=== PATIENT | male | born 1935 | race Caucasian/White ===

== ENCOUNTER 2019-04-27 14:41 | Emergency (ER) | payer OTHER ==
--- NOTE | 2019-04-27 15:14 | EDPHYS ---
Physician Documentation [facility] Name: Fantasma Mcdonald Age: 83 yrs Sex: Male : 1935 Arrival Date: 04/27/2019 Time: 14:45 Bed 7 Private MD: Eugenio Robledo C ED Physician Edgard Saleh HPI: 04/27 15:11 This 83 yrs old Male presents to ER via Ambulatory with complaints of Wound jmm Infection. 15:11 The patient presents with cellulitis of the right arm. Onset: The symptoms/episode jmm began/occurred gradually, 1 week(s) ago. Possible cause(s): injury. Associated signs and symptoms: Pertinent positives: swelling, Pertinent negatives: fever. This is an 83 year old with a history of htn that presents to the ED with complaints of redness and swelling to his right arm. Patient states his arm was scraped approx 1 week ago. Patient has applied abx ointment and noticed swelling with redness yesterday. Denies fever or chills. . Historical: - Allergies: 15:00 NKDA; aj1 - Home Meds: 15:00 losartan oral oral [Active]; Metoprolol Tartrate Oral [Active]; aj1 - PMHx: 15:00 Hypertension; aj1 - Immunization history:: Flu vaccine is not up to date. - Social history:: Smoking status: Patient/guardian denies using tobacco. - Ebola Screening: : Patient denies travel to an Ebola-affected area in the 21 days before illness onset. ROS: 15:11 Constitutional: Negative for fever, chills, and weight loss, Cardiovascular: Negative jmm for chest pain, palpitations, and edema, Respiratory: Negative for shortness of breath, cough, wheezing, and pleuritic chest pain. 15:11 MS/extremity: Positive for erythema, swelling. 15:11 All other systems are negative. Exam: 15:11 Constitutional: This is a well developed, well nourished patient who is awake, alert, jmm and in no acute distress. Head/Face: atraumatic. Eyes: EOMI, no conjunctival erythema appreciated ENT: Moist Mucus Membranes Neck: Trachea midline, Supple Chest/axilla: Normal chest wall appearance and motion. Cardiovascular: Regular rate and rhythm. No edema appreciated Respiratory: Normal respirations, no respiratory distress appreciated Abdomen/GI: Non distended, soft Back: Normal ROM 15:11 Musculoskeletal/extremity: FROM appreciated to the right elbow, compartments are soft, NVI, full radial pulse. 15:11 Skin: erythema noted surrounding wound to the right proximal forearm, no purulent drainage appreciated. Non tender to palpation. 15:11 Neuro: Orientation: is normal, Mentation: is normal, Memory: is normal. 15:11 Psych: Behavior/mood is pleasant, cooperative. Vital Signs: 15:00 BP 125 / 72; Pulse 65; Resp 18; Temp 98.7; Pulse Ox 99% on R/A; Weight 68.04 kg (R); aj1 Height 5 ft. 8 in. (172.72 cm) (R); Pain 0/10; 15:00 Body Mass Index 22.81 (68.04 kg, 172.72 cm) aj1 MDM: 15:11 Patient medically screened. [facility] 15:12 Data reviewed: vital signs, nurses notes. Counseling: I had a detailed discussion with [facility] the patient and/or guardian regarding: the historical points, exam findings, and any diagnostic results supporting the discharge/admit diagnosis, the need for outpatient follow up, to return to the emergency department if symptoms worsen or persist or if there are any questions or concerns that arise at home. 15:26 ED course: Patient is alert and non toxic in appearance in the ED. Afebrile. Patient [facility] given strict return precautions. Patient understood and agrees with the plan of care. . Administered Medications: No medications were administered Disposition: 18:31 Co-signature as Attending Physician, Edgard Saleh MD. rn Disposition: 04/27/19 15:13 Discharged to Home. Impression: Cellulitis of the right arm. - Condition is Stable. - Discharge Instructions: Cellulitis, Adult. - Prescriptions for Cephalexin 500 mg Oral Capsule - take 1 capsule by ORAL route every 6 hours for 10 days; 40 capsule. Bactrim DS 800- 160 mg Oral Tablet - take 1 tablet by ORAL route every 12 hours for 10 days; 20 tablet. - Medication Reconciliation Form, Thank You Letter, Antibiotic Education, Prescription Opioid Use form. - Follow up: Eugenio Robledo MD; When: 2 - 3 days; Reason: Recheck today's complaints, Continuance of care, Re-evaluation by your physician. Signatures: Cheli Snell RN RN aj1 Lindsay Moeller RN RN sv Sukh Pan PA PA Edgard Desir MD MD application internship: (The following items were deleted from the chart) 15:33 15:13 04/27/2019 15:13 Discharged to Home. Impression: Cellulitis of the right arm. sv Condition is Stable. Forms are Medication Reconciliation Form, Thank You Letter, Antibiotic Education, Prescription Opioid Use. Follow up: A Robledo; When: 2 - 3 days; Reason: Recheck today's complaints, Continuance of care, Re-evaluation by your physician. marcus
--- NOTE | 2019-04-27 15:14 | ER ---
Nurse's Notes [facility] Name: Fantasma Mcdonald Age: 83 yrs Sex: Male : 1935 Arrival Date: 04/27/2019 Time: 14:45 Bed 7 Private MD: Eugenio Robledo C Diagnosis: Cellulitis of the right arm Presentation: 04/27 14:57 Presenting complaint: Patient states: He got a skin tear to his right arm on Tuesday, aj1 yesterday when he checked it he noticed that it was red and swollen. Transition of care: patient was not received from another setting of care. Onset of symptoms was 2018. Risk Assessment: Do you want to hurt yourself or someone else? Patient reports no desire to harm self or others. Initial Sepsis Screen: Does the patient meet any 2 criteria? No. Patient's initial sepsis screen is negative. Does the patient have a suspected source of infection? Yes: Skin breakdown/wound. Care prior to arrival: None. 14:57 Method Of Arrival: Ambulatory aj1 14:57 Acuity: JEFFREY 3 aj1 Triage Assessment: 15:00 General: Appears in no apparent distress. comfortable, Behavior is calm, cooperative, aj1 appropriate for age. Pain: Denies pain. Neuro: Level of Consciousness is awake, alert, obeys commands. Cardiovascular: Patient's skin is warm and dry. Respiratory: Airway is patent Respiratory effort is even, unlabored, Respiratory pattern is regular, symmetrical. Historical: - Allergies: 15:00 NKDA; aj1 - Home Meds: 15:00 losartan oral oral [Active]; Metoprolol Tartrate Oral [Active]; aj1 - PMHx: 15:00 Hypertension; aj1 - Immunization history:: Flu vaccine is not up to date. - Social history:: Smoking status: Patient/guardian denies using tobacco. - Ebola Screening: : Patient denies travel to an Ebola-affected area in the 21 days before illness onset. Screenin:15 Abuse screen: Denies threats or abuse. Denies injuries from another. Nutritional sv screening: No deficits noted. Tuberculosis screening: No symptoms or risk factors identified. Fall Risk None identified. Assessment: 15:15 General: Appears in no apparent distress. comfortable, Behavior is calm, cooperative, sv appropriate for age. Pain: Denies pain. Neuro: Level of Consciousness is awake, alert, obeys commands, Oriented to person, place, time, situation, Moves all extremities. Full function Gait is steady. Respiratory: Respiratory effort is even, unlabored, Respiratory pattern is regular, symmetrical. Derm: Skin is pink, warm \T\ dry. Wound noted palmar aspect of right forearm Wound is open skin tear from Tuesday with redness noted around the sight. Vital Signs: 15:00 BP 125 / 72; Pulse 65; Resp 18; Temp 98.7; Pulse Ox 99% on R/A; Weight 68.04 kg (R); aj1 Height 5 ft. 8 in. (172.72 cm) (R); Pain 0/10; 15:00 Body Mass Index 22.81 (68.04 kg, 172.72 cm) [facility] ED Course: 14:45 Patient arrived in ED. mr 14:45 Eugenio Robledo MD is Private Physician. mr 14:59 Triage completed. [facility] 15:00 Arm band placed on Patient placed in an exam room. [facility] 15:02 [facility] 15:02 Edgard Saleh MD is Attending Physician. [facility] 15:12 Eugenio Robledo MD is Referral Physician. [facility] 15:15 Patient has correct armband on for positive identification. Bed in low position. Call sv light in reach. Door closed. Head of bed elevated. 15:24 Lindsay Moeller, KAYLA is Primary Nurse. sv 15:33 No provider procedures requiring assistance completed. Patient did not have IV access sv during this emergency room visit. Administered Medications: No medications were administered Outcome: 15:13 Discharge ordered by MD. [facility] 15:33 Discharged to home ambulatory. sv 15:33 Condition: stable 15:33 Discharge instructions given to patient, Instructed on discharge instructions, follow up and referral plans. medication usage, Demonstrated understanding of instructions, follow-up care, medications, Prescriptions given X 2. 15:33 Patient left the ED. sv Signatures: Cheli Snell RN RN [facility] Lindsay Moeller, KAYLA GARZA Sukh Pan PA PA jmm Farooq Amy mr
[2019-04-27 15:45] VITALS: BP 125/72; TEMP 98.7; O2SAT 99
== END 2019-04-27 15:33 | disposition home or self-care (01) ==
LOC: ER 14:41
DX: L03.113 Cellulitis of right upper limb (principal); I10 Essential (primary) hypertension
CPT/HCPCS: 99282